=== PATIENT | female | born 1945 | race Hispanic/Latino ===

== ENCOUNTER 2017-04-11 03:01 | Emergency (ER) | payer MEDICARE ==
[2017-04-11 03:02] VITALS: BMI 22.1
[2017-04-11 03:05] VITALS: BP 130/70; PULSE 77; RESP 16; TEMP 98.4; O2SAT 99
--- NOTE | 2017-04-11 03:06 | ED PDOC ---
Arrival/HPI - General Chief Complaint: Lower Extremity Problem/Injury Time Seen by Provider: 04/11/17 03:04 - History of Present Illness Narrative History of Present Illness (Text): 04/11/17 03:05 71 year old female who presents to the ED complaining of right ankle discomfort. Patient states she twisted her right ankle 1 week while walking on stairs. Patient has been ambulating on the affected area, however still with some bruising with some swelling noted. Patient denies any weakness/numbness/ tingling to the area, decreased ROM, or any other complaints. Time/Duration: 1 week Symptom Onset: Gradual Symptom Course: Unchanged Activities at Onset: Light Context: Walking Past Medical History - Provider Review Nursing Documentation Reviewed: Yes - Infectious Disease Hx of Infectious Diseases: None - Tetanus Immunization Tetanus Immunization: Unknown - Cardiac Hx Hypertension: Yes - Psychiatric Hx Depression: No Hx Emotional Abuse: No Hx Physical Abuse: No Hx Substance Use: No - Surgical History Hx Hysterectomy: Yes - Anesthesia Hx Anesthesia: Yes Hx Anesthesia Reactions: No Hx Malignant Hyperthermia: No - Suicidal Assessment Feels Threatened In Home Enviroment: No Family/Social History - Physician Review Nursing Documentation Reviewed: Yes Family/Social History: Unknown Family HX Smoking Status: Never Smoked Hx Alcohol Use: Yes Hx Substance Use: No Hx Substance Use Treatment: No Allergies/Home Meds Allergies/Adverse Reactions: Allergies No Known Allergies Allergy (Verified 04/30/12 09:32) Home Medications: Home Meds Medication Instructions Recorded Confirmed Fosinopril Sodium 10 mg PO DAILY 06/12/13 04/11/17 Review of Systems - Physician Review All systems were reviewed & negative as marked: Yes - Review of Systems Constitutional: Normal. absent: Fevers Eyes: Normal ENT: Normal Respiratory: Normal Cardiovascular: Normal Gastrointestinal: Normal Genitourinary Female: Normal Musculoskeletal: Arthralgias (+right ankle pain). absent: Back Pain, Neck Pain Skin: Normal Neurological: Normal Endocrine: Normal Hemo/Lymphatic: Normal Psychiatric: Normal Physical Exam Vital Signs Reviewed: Yes Vital Signs Temp Pulse Resp BP Pulse Ox 04/11/17 03:02 98.4 F 77 16 130/70 99 Temperature: Afebrile Blood Pressure: Normal Pulse: Regular Respiratory Rate: Normal Appearance: Positive for: Well-Appearing, Non-Toxic, Comfortable Pain Distress: None Mental Status: Positive for: Alert and Oriented X 3 - Systems Exam Head: Present: Atraumatic, Normocephalic Pupils: Present: PERRL Extroacular Muscles: Present: EOMI Conjunctiva: Present: Normal Lower Extremity: Present: NORMAL PULSES, Normal ROM, Swelling (Swelling to right ankle with ecchymotic bruising noted), Neurovascularly Intact, Capillary Refill < 2 s. No: Edema, Cyanosis, Erythema, Deformity Neurological: Present: GCS=15, CN II-XII Intact, Speech Normal Skin: Present: Warm, Dry, Normal Color. No: Rashes Psychiatric: Present: Alert, Oriented x 3, Normal Insight, Normal Concentration Medical Decision Making ED Course and Treatment: 04/11/17 03:05 Impression: 71 year old female c/o right ankle pain/swelling for 1 week. Differential Diagnosis included but are not limited to: ankle fracture vs sprain Plan: -- XR Right Ankle - Reassess and disposition Progress Notes: 04/11/17 03:16 Reviewed radiology, XR Right Ankle shows no acute processes/fracture. 04/11/17 03:24 On reevaluation the patient is in no acute distress. Patient is stable for discharge. Patient was instructed to follow up with physician/orthopedist/ clinic in 1-2 days or return if symptoms persist/worsen or new concerning symptoms arise. - RAD Interpretation Radiology Orders: 04/11/17 03:05 ANKLE RIGHT 3 VIEWS ROUTINE [RAD] Stat Commissioned Security Officer: ED Physician - Scribe Statement The provider has reviewed the documentation as recorded by the Marvin Angel Provider Scribe Attestation: All medical record entries made by the Scribe were at my direction and personally dictated by me. I have reviewed the chart and agree that the record accurately reflects my personal performance of the history, physical exam, medical decision making, and the department course for this patient. I have also personally directed, reviewed, and agree with the discharge instructions and disposition. Disposition/Present on Arrival - Present on Arrival Any Indicators Present on Arrival: No History of DVT/PE: No History of Uncontrolled Diabetes: No Urinary Catheter: No History of Decub. Ulcer: No History Surgical Site Infection Following: None - Disposition Have Diagnosis and Disposition been Completed?: Yes Diagnosis: Ankle sprain Disposition: HOME/ ROUTINE Disposition Time: 03:21 Patient Plan: Discharge Condition: GOOD Discharge Instructions (ExitCare): Ankle Sprain (ED) Additional Instructions: Avoid prolonged standing on the affected area/keep elevated as often as possible /follow up with your orthopedist Referrals: Jose Pascal, [Staff Provider] - Follow up with primary Forms: [employer] (Greek)
--- NOTE | 2017-04-11 08:39 | RAD ---
PROCEDURE: Right Ankle Radiographs. HISTORY: injury COMPARISON: None FINDINGS: BONES: Normal. No fracture. JOINTS: Normal. No osteoarthritis. Ankle mortise maintained. Talar dome intact SOFT TISSUES: There is soft tissue swelling on the lateral side OTHER FINDINGS: None. IMPRESSION: Soft tissue swelling. No fracture
== END 2017-04-11 03:30 | disposition home or self-care (01) ==
LOC: ED 03:01
DX: S93.401A Sprain of unspecified ligament of right ankle, initial encounter (principal); X50.1XXA Overexertion from prolonged static or awkward postures, initial encounter; Y92.89 Other specified places as the place of occurrence of the external cause